=== PATIENT | male | born 2005 | race Two or more races ===

== ENCOUNTER → 2024-04-19 | Emergency (ER) | payer OTHER ==
[~2024-04-19] VITALS: Ht 172.7 cm; Wt 59.0 kg
[~2024-04-19] MED LIST: 0.9 % SODIUM CHLORIDE 1,000 ML IV SCH; DEXTROSE 5 % AND 0.9 % NACL 1,000 ML IV SCH; DEXTROSE 5 % AND 0.9 % NACL 500 ML IV SCH; FAMOTIDINE/PF 20 MG/2 ML VIAL IV SCH; FAMOTIDINE/PF 20 MG/2 ML VIAL ONE; KETOROLAC TROMETHAMINE 30 MG VIAL IV ONE; KETOROLAC TROMETHAMINE 30 MG VIAL ONE; LIDOCAINE HCL VISCOUS 20MG/ML BLIST 15ML MM ONE; ONDANSETRON HCL 2 MG/ML VIAL IV SCH; ONDANSETRON HCL 2 MG/ML VIAL ONE
[2024-04-19 10:08] LABS: HEMATOCRIT 42.8 % (39.0-48.0); HEMOGLOBIN 13.8 g/dL (13-16.00); MEAN CELL VOLUME 85.4 fL (80.0-100.00); MEAN CORPUSCULAR HEMOGLOBIN 27.5 pg (27.00-32.0); MEAN CORPUSCULAR HGB CONC 32.2 g/dl (32.0-36.0); PLATELET COUNT 366 K/uL (150-450); RED BLOOD COUNT 5.02 M/uL (4.00-6.00); RED CELL DISTRIBUTION WIDTH 15.6 % (11.5-14.5)
[2024-04-19 10:55] LABS: ALBUMIN 3.6 gm/dL (3.4-5.0); BILIRUBIN TOTAL 0.46 mg/dL (0.3-1.2); CALCIUM 9.5 mg/dL (8.5-10.1); CREATININE SERUM 0.82 mg/dL (0.70-1.30); GFR 119.78; GLOBULINA 4.5 G/DL (2.4-3.5); POTASSIUM 3.86 mEq/L (3.5-5.1); TOTAL PROTEIN 8.1 gm/dL (6.4-8.2)
[2024-04-19 19:43] VITALS: BP 117/69; O2SAT 100
== END | disposition designated cancer center or children's hospital (05) ==
LOC: ER 08:24 → EMR PED 08:24
PROVIDERS: Emergency Medicine Pediatric Emergency Medicine
DX: K56.699 Other intestinal obstruction unspecified as to partial versus complete obstruction (principal); R11.10 Vomiting, unspecified; E86.0 Dehydration; R10.9 Unspecified abdominal pain; Z20.822 Contact with and (suspected) exposure to COVID-19